=== PATIENT | male | born 1975 | race Caucasian/White ===

== ENCOUNTER 2024-04-03 13:04 | Emergency (ER) | payer OTHER ==
--- OUTSIDE RECORDS SUMMARY | 2024-04-03 13:06 | XMS REPORT | Continuity of Care Document ---
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
[2024-04-03 13:56] LABS: Absolute Eosinophils 0.1 K/uL (0-0.5); Absolute Lymphocytes (CBC) 1.7 K/uL (0.7-4.9); Absolute Monocytes 0.6 K/uL (0.1-1.3); Absolute Neutrophil 3.7 K/uL (1.8-8.0); Basophils % 0.3 % (0-1.3); Hematocrit 43.4 % (39.6-49.0); Hemoglobin 14.3 g/dL (13.6-17.9); Lymphocytes % 27.7 % (15.3-44.8); MCH 30.1 pg (27.0-35.0); MCHC 32.9 g/dL (32.0-36.0); MCV 91.6 fL (80-100); MPV 7.3 fL (7.6-11.3); Monocytes % 9.5 % (3.3-12.3); Neutrophils % 61.5 % (41.7-73.7); Platelets 261 thou/uL (152-406); RBC Red Blood Cell Count 4.74 M/uL (4.33-5.43); Red Cell Distribution Width 13.5 % (12.1-15.2)
[2024-04-03] MEDS ORDERED: NA CHLORIDE 0.9% 1,000 ML ONE (14:01)
[2024-04-03 14:03] LABS: PT Prothrombin Time 12.7 SECONDS (9.5-12.5); PTT, Activated Partial Thromb 29.3 SECONDS (24.3-36.9); Protime INR 1.16
[2024-04-03 14:14] LABS: Anion Gap 8.7 mEq/L (5.0-15.0); Potassium 3.7 mEq/L (3.5-5.1); Troponin High Sensitivity 42.4 pg/mL (<58.9)
[2024-04-03 14:18] LABS: Thyroid Stimulating Hormone 1.65 uIU/mL (0.358-3.740)
--- NOTE | 2024-04-03 15:18 | RAD REPORT ---
EXAM DESCRIPTION: Anibal Single View04/03/2024 2:01 pm CLINICAL HISTORY: Palpitations COMPARISON: 1999 FINDINGS: Elevation left hemidiaphragm with areas subsegmental atelectasis left lung base Right lung appears clear. Heart is normal size
--- NOTE | 2024-04-03 15:30 | EDPHYS ---
Physician Documentation [facility] Name: Ramón Black Jr Age: 48 yrs Sex: Male : 1975 Arrival Date: 04/03/2024 Time: 13:04 Bed 19 Private MD: ED Physician Jens Barakat HPI: 04/03 13:37 This 48 yrs old Male presents to ER via EMS with complaints of palpitations. ec2 13:37 Patient arrives today for evaluation of palpitations. Patient was out in the heat ec2 working and subsequently felt palpitations and lightheaded. Patient subsequently called 911. EMS reports they noticed him to be in SVT. Patient had received 12 mg of adenosine from EMS with improvement in symptoms. Patient reports that he also is on levothyroxine, has been taking Vyvanse as well as taking caffeine this morning. Reports poor fluid intake despite working outside.. Historical: - Allergies: 13:30 Tamiflu; tl4 - Home Meds: 13:49 metformin 500 mg Oral tr24 1 tab once daily [Active]; losartan 100 mg Oral tab 1 tab tl4 once daily [Active]; Lexapro 10 mg oral tablet 1 tab daily [Active]; fenofibrate oral 134 mg daily [Active]; Vascepa 1 gram oral capsule 2 caps daily [Active]; levothyroxine 50 mcg tablet daily [Active]; Vyvanse 50 mg oral capsule 1 cap daily [Active]; Nexium 40 mg Oral capsule,delayed release (e.c.) 1 cap daily [Active]; Vitamin D3 25 mcg (1,000 unit) oral tablet 4 tabs daily [Active]; Zyrtec 10 mg Oral tablet 1 tab daily [Active]; semaglutide 1 mg/dose (4 mg/3 mL) subcutaneous Pen Injector 1 mg every week [Active]; - PMHx: 13:30 Diabetes - NIDDM; Hypertension; Sleep Apnea; Gastroesophageal reflux disease; Anxiety; tl4 Hypercholesterolemia; - Immunization history:: Adult Immunizations unknown. - Infectious Disease History:: Denies. - Social history:: Smoking status: Patient reports the use of cigarette tobacco products, chewing tobacco, Patient/guardian denies using alcohol, street drugs. ROS: 13:37 Constitutional: as per hpi ec2 Exam: 13:37 Constitutional: GEN: NAD Head: atraumatic Eyes: EOMI Ears: External ears are ec2 normal. CV: Tachycardia LUNGS: no respiratory distress ABD: non-distended SKIN: no evidence of rashes MSK: no evidence of trauma NEURO: moves all extremities equally Vital Signs: 13:20 BP 142 / 89; Pulse 108; Resp 17; Temp 98.3(O); Pulse Ox 97% on R/A; Weight 111.58 kg; tl4 Height 6 ft. 3 in. ; Pain 0/10; 13:30 BP 135 / 98; Pulse 101; Resp 15; Pulse Ox 98% on R/A; Pain 0/10; tl4 14:00 BP 137 / 95; Pulse 101; Resp 16; Pulse Ox 97% on R/A; tl4 14:30 BP 139 / 92; Pulse 92; Resp 19; Pulse Ox 99% on R/A; tl4 14:34 BP 137 / 95; Pulse 90; ec2 15:00 BP 135 / 96; Pulse 103; Resp 19; Pulse Ox 100% on R/A; tl4 15:51 BP 139 / 96; Pulse 89; Resp 14; Temp 97.3(TE); Pulse Ox 99% ; Pain 0/10; tl4 13:20 Body Mass Index 30.75 (111.58 kg, 190.5 cm) tl4 13:20 Pain Scale: Adult tl4 13:30 Pain Scale: Adult tl4 15:51 Pain Scale: Adult tl4 MDM: 13:24 Patient medically screened. ec2 13:37 Data reviewed: vital signs. ED course: Patient arrives today for evaluation of ec2 palpitations. Examination remarkable for tachycardic individual is otherwise in no acute distress with a reassuring examination. Will obtain lab work, EKG, chest x-ray. Differential diagnosis includes thyrotoxicosis, SVT, arrhythmia, electrolyte disturbances, ACS.. 13:59 ED course: EKG independently reviewed and interpreted by me, shows normal sinus rhythm, ec2 rate of 94, no acute ST segment elevations, intervals are nonconcerning.. 14:34 ED course: Metabolic profile shows appropriate electrolytes, slight hypokalemia with a ec2 potassium of 3.7, renal dysfunction with a creatinine of 1.35 and a GFR of 65. CBC is reassuring, troponin is within normal ranges, BNP within normal ranges, CPK minimally elevated at 340. T4 within appropriate ranges. . 15:29 ED course: On reassessment patient is well-appearing in no acute distress. Will ec2 discharge home, presentation consistent with SVT. Return precautions given. Instructed to follow-up with cardiology.. 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 04/03 13:37 Order name: Basic Metabolic Panel; Complete Time: 14:33 ec2 / 13:37 Order name: CBC with Diff; Complete Time: 14:33 ec2 04/03 13:37 Order name: NT PRO-BNP; Complete Time: 14:33 ec2 04/03 13:37 Order name: PT-INR; Complete Time: 14:11 ec2 04/03 13:37 Order name: Troponin HS; Complete Time: 14:33 ec2 04/03 13:37 Order name: Ptt, Activated; Complete Time: 14:11 ec2 04/03 13:38 Order name: TSH; Complete Time: 14:33 ec2 04/03 13:38 Order name: T4 Free; Complete Time: 14:33 ec2 / 14:11 Order name: CK; Complete Time: 14:33 ec2 / 14:11 Order name: Add On-Lab ec2 04/03 13:37 Order name: XRAY Chest (1 view); Complete Time: 15:22 ec2 / 13:37 Order name: EKG; Complete Time: 13:37 ec2 04/03 13:37 Order name: Cardiac monitoring; Complete Time: 13:46 ec2 04/03 13:37 Order name: EKG - Nurse/Tech; Complete Time: 13:55 ec2 04/03 13:37 Order name: IV Saline Lock; Complete Time: 13:46 ec2 04/03 13:37 Order name: Labs collected and sent; Complete Time: 13:47 ec2 04/03 13:37 Order name: O2 Per Protocol; Complete Time: 13:47 ec2 04/03 13:37 Order name: O2 Sat Monitoring; Complete Time: 13:47 ec2 Administered Medications: 14:19 Drug: NS 0.9% IV 1000 ml IV at 1 bolus Per protocol; 1000 mL bolus Route: IV; Rate: 1 tl4 bolus; Site: left antecubital; Delivery: Primary tubing; 15:56 Follow up: Response: No adverse reaction; IV Status: Completed infusion; IV Intake: tl4 1000ml Disposition Summary: 04/03/24 15:30 Discharge Ordered Notes: Location: Home ec2 Condition: Stable ec2 Diagnosis - Supraventricular tachycardia ec2 Followup: ec2 - With: Private Physician - When: - Reason: Re-evaluation by your physician Discharge Instructions: - Discharge Summary Sheet ec2 - Supraventricular Tachycardia, Adult, [id number] ec2 Forms: - Medication Reconciliation Form ec2 - Antibiotic Education ec2 - Prescription Opioid Use ec2 - Patient Portal Instructions ec2 - Leadership Thank You Letter ec2 Signatures: Dispatcher [employer] Jens Tolbert MD MD ec2 Tho Carey RN RN tl4 Corrections: (The following items were deleted from the chart) 13:41 13:37 This 48 yrs old Male presents to ER via EMS with unknown complaint. ec2 ec2
--- NOTE | 2024-04-03 15:30 | ER ---
Nurse's Notes [facility] Name: Ramón Black Jr Age: 48 yrs Sex: Male : 1975 Arrival Date: 04/03/2024 Time: 13:04 Bed 19 Private MD: Diagnosis: Supraventricular tachycardia Presentation: 04/03 13:20 Chief complaint: Patient states: Pt states he was working outside in the heat and tl4 became dizzy. Pt states he feels 'washed out'. Pt denies CP, SOB. Coronavirus screen: At this time, the client does not indicate any symptoms associated with coronavirus-19. Ebola Screen: No symptoms or risks identified at this time. Initial Sepsis Screen: Does the patient meet any 2 criteria? No. Patient's initial sepsis screen is negative. Does the patient have a suspected source of infection? No. Patient's initial sepsis screen is negative. Risk Assessment: Do you want to hurt yourself or someone else? Patient reports no desire to harm self or others. Onset of symptoms was April 03, 2024 at 11:40. Care prior to arrival: Medication(s) given: Adenosine, 12 mg, x 1, IV initiated. 18 GA, in the left antecubital area. 13:20 Method Of Arrival: EMS: [facility] tl4 13:20 Acuity: ALEXSANDER 2 tl4 Triage Assessment: 13:25 General: Appears in no apparent distress. Behavior is calm, cooperative. Pain: Denies tl4 pain. EENT: No signs and/or symptoms were reported regarding the EENT system. Neuro: Level of Consciousness is awake, alert, obeys commands, Oriented to person, place, time, situation, Wage And [employer] Investigator are equal bilaterally Moves all extremities. Full function Speech is normal, Facial symmetry appears normal, Reports dizziness. Cardiovascular: Reports fatigue, Capillary refill < 3 seconds Patient's skin is warm and dry. Respiratory: Airway is patent Respiratory effort is even, unlabored, Respiratory pattern is regular, symmetrical, Breath sounds are clear bilaterally. GI: No signs and/or symptoms were reported involving the gastrointestinal system. : No signs and/or symptoms were reported regarding the genitourinary system. Derm: No signs and/or symptoms reported regarding the dermatologic system. Musculoskeletal: No signs and/or symptoms reported regarding the musculoskeletal system. Historical: - Allergies: 13:30 Tamiflu; tl4 - Home Meds: 13:49 metformin 500 mg Oral tr24 1 tab once daily [Active]; losartan 100 mg Oral tab 1 tab tl4 once daily [Active]; Lexapro 10 mg oral tablet 1 tab daily [Active]; fenofibrate oral 134 mg daily [Active]; Vascepa 1 gram oral capsule 2 caps daily [Active]; levothyroxine 50 mcg tablet daily [Active]; Vyvanse 50 mg oral capsule 1 cap daily [Active]; Nexium 40 mg Oral capsule,delayed release (e.c.) 1 cap daily [Active]; Vitamin D3 25 mcg (1,000 unit) oral tablet 4 tabs daily [Active]; Zyrtec 10 mg Oral tablet 1 tab daily [Active]; semaglutide 1 mg/dose (4 mg/3 mL) subcutaneous Pen Injector 1 mg every week [Active]; - PMHx: 13:30 Diabetes - NIDDM; Hypertension; Sleep Apnea; Gastroesophageal reflux disease; Anxiety; tl4 Hypercholesterolemia; - Immunization history:: Adult Immunizations unknown. - Infectious Disease History:: Denies. - Social history:: Smoking status: Patient reports the use of cigarette tobacco products, chewing tobacco, Patient/guardian denies using alcohol, street drugs. Screenin:[facility] ED Fall Risk Assessment (Adult) History of falling in the last 3 months, tl4 including since admission No falls in past 3 months (0 pts) Confusion or Disorientation No (0 pts) Intoxicated or Sedated No (0 pts) Impaired Gait No (0 pts) Mobility Assist Device Used No (0 pt) Altered Elimination No (0 pt) Score/Fall Risk Level 0 - 2 = Low Risk Oriented to surroundings, Maintained a safe environment, Educated pt \T\ family on fall prevention, incl call for assistance when getting out of bed, Assessed \T\ reinforced patient's understanding of fall precautions, Hourly rounding (assess needs \T\ fall precautionary measures) done, Used ambulatory aids as needed (educated on \T\ assisted with), Used gait belt as appropriate. Abuse screen: Denies threats or abuse. Denies injuries from another. Nutritional screening: No deficits noted. Tuberculosis screening: No symptoms or risk factors identified. Assessment: 13:47 Reassessment: No changes from previously documented assessment. Patient and/or family tl4 updated on plan of care and expected duration. Pain level reassessed. Patient is alert, oriented x 3, equal unlabored respirations, skin warm/dry/pink. Pt denies any needs at this time. Call jones at bedside. Family at bedside. Will continue to monitor. 14:20 Reassessment: No changes from previously documented assessment. Patient and/or family tl4 updated on plan of care and expected duration. Pain level reassessed. Patient is alert, oriented x 3, equal unlabored respirations, skin warm/dry/pink. Pt denies any needs. Family at bedside. Will continue to monitor. 15:06 Reassessment: No changes from previously documented assessment. Patient and/or family tl4 updated on plan of care and expected duration. Pain level reassessed. Patient is alert, oriented x 3, equal unlabored respirations, skin warm/dry/pink. Pt denies any needs at this time. Family at bedside. Will continue to monitor Patient states symptoms have improved. 15:49 Reassessment: No changes from previously documented assessment. Patient and/or family tl4 updated on plan of care and expected duration. Pain level reassessed. Patient is alert, oriented x 3, equal unlabored respirations, skin warm/dry/pink. Pt denies any needs at this time. Family at bedside. Will continue to monitor Patient states feeling better. Patient states symptoms have improved. Vital Signs: 13:20 BP 142 / 89; Pulse 108; Resp 17; Temp 98.3(O); Pulse Ox 97% on R/A; Weight 111.58 kg; tl4 Height 6 ft. 3 in. ; Pain 0/10; 13:30 BP 135 / 98; Pulse 101; Resp 15; Pulse Ox 98% on R/A; Pain 0/10; tl4 14:00 BP 137 / 95; Pulse 101; Resp 16; Pulse Ox 97% on R/A; tl4 14:30 BP 139 / 92; Pulse 92; Resp 19; Pulse Ox 99% on R/A; tl4 14:34 BP 137 / 95; Pulse 90; ec2 15:00 BP 135 / 96; Pulse 103; Resp 19; Pulse Ox 100% on R/A; tl4 15:51 BP 139 / 96; Pulse 89; Resp 14; Temp 97.3(TE); Pulse Ox 99% ; Pain 0/10; tl4 13:20 Body Mass Index 30.75 (111.58 kg, 190.5 cm) tl4 13:20 Pain Scale: Adult tl4 13:30 Pain Scale: Adult tl4 15:51 Pain Scale: Adult tl4 Vitals: 13:30 Cardiac Rhythm Assessment Regular Sinus tach. tl4 14:30 Cardiac Rhythm Assessment Regular Sinus rhythm. tl4 ED Course: 13:11 Patient arrived in ED. tl4 13:24 Jens Barakat MD is Attending Physician. ec2 13:27 Triage completed. tl4 13:30 Arm band placed on right wrist. tl4 13:31 Patient has correct armband on for positive identification. Placed in gown. Bed in low tl4 position. Call light in reach. Side rails up X2. Adult w/ patient. Provided Education on: ed process, call jones. Client placed on continuous cardiac and pulse oximetry monitoring. NIBP monitoring applied. library monitor on. Door closed. Noise minimized. Moved to private room. Pillow given. 13:32 No provider procedures requiring assistance completed. Maintain EMS IV. Dressing tl4 intact. Good blood return noted. Site clean \T\ dry. Gauge \T\ site: 18g left antecubital. IV is patent, is intact, with fluids infusing freely, with good blood return, Flushed left antecubital with 5 ml normal saline. 13:46 T4 Free Sent. tl4 13:46 TSH Sent. tl4 13:46 Ptt, Activated Sent. tl4 13:47 Basic Metabolic Panel Sent. tl4 13:47 CBC with Diff Sent. tl4 13:47 NT PRO-BNP Sent. tl4 13:47 PT-INR Sent. tl4 13:47 Troponin HS Sent. tl4 13:47 XRAY Chest (1 view) Sent. tl4 13:55 Initial lab(s) drawn, by ky, sent to lab. EKG done, by ED staff, reviewed by Jens Barakat MD. 13:55 Basic Metabolic Panel Sent. [email or web address] 13:55 CBC with Diff Sent. jg11 13:55 NT PRO-BNP Sent. jg11 13:55 PT-INR Sent. [email or web address] 13:55 Troponin HS Sent. [email or web address] 13:55 T4 Free Sent. [email or web address] 13:55 TSH Sent. [email or web address] 13:56 Ptt, Activated Sent. jg11 14:03 XRAY Chest (1 view) In Process Unspecified. EDMS 14:20 Add On-Lab Sent. [email or web address] 14:20 CK Sent. [email or web address] 15:51 IV discontinued, intact, bleeding controlled, No redness/swelling at site. Pressure tl4 dressing applied. Administered Medications: 14:19 Drug: NS 0.9% IV 1000 ml IV at 1 bolus Per protocol; 1000 mL bolus Route: IV; Rate: 1 tl4 bolus; Site: left antecubital; Delivery: Primary tubing; 15:56 Follow up: Response: No adverse reaction; IV Status: Completed infusion; IV Intake: tl4 1000ml Medication: 13:31 VIS not applicable for this client. tl4 Intake: 15:56 IV: 1000ml; Total: 1000ml. tl4 Outcome: 15:30 Discharge ordered by . ec2 15:55 Discharged to home with family, ap3 15:55 Condition: good 15:55 Discharge instructions given to patient, family, Instructed on discharge instructions, follow up and referral plans. Demonstrated understanding of instructions, follow-up care, 15:56 Patient left the ED. tl4 Signatures: Dispatcher [employer] EDRaegan Adhikari RN RN ap3 Jens Barakat MD MD ec2 Tho Carey RN RN tl4 Rui Huynh jg11
[2024-04-03 16:28] VITALS: O2SAT 99
[2024-04-03 16:49] VITALS: BP 139/96; TEMP 97.3
--- NOTE | 2024-04-04 16:34 | EKG ---
Test Date: 2024-04-03 Test Time: 13:51:47 Screen Making Technician: ELDA MEASUREMENT RESULTS: Intervals: Rate: 94 PA: 148 QRSD: 90 QT: 340 QTc: 425 [place]: P: 53 PA: 148 QRS: 43 T: -23 INTERPRETIVE STATEMENTS: Normal sinus rhythm Normal ECG Compared to ECG 11/27/2017 14:40:01 No significant changes Electronically Signed On 04-04-24 16:32:47 CDT by Ken Browning
== END 2024-04-03 15:56 | disposition home or self-care (01) ==
LOC: ER 13:04
DX: I47.10 Supraventricular tachycardia, unspecified (principal); F17.220 Nicotine dependence, chewing tobacco, uncomplicated
CPT/HCPCS: 96361; 93005; 85025; 80048; 36415; 82550; 85610; 85730; 84443; 84484; 84439; 83880; 71045; 96360; 99285; J7030